=== PATIENT | male | born 1965 | race Caucasian/White ===

== ENCOUNTER 2016-09-01 10:05 | Emergency (ER) | payer OTHER ==
[~2016-09-01] VITALS: Ht 188 cm; Wt 95.9 kg
[2016-09-01 10:48] LABS: MCH 30.3 PG (29.0-34.0); MCHC 33.9 G/DL (30.0-36.0); MCV 89.3 FL (86-99); MEAN PLAT.VOLUME 11.1 uM^3 (9.0-12.4); PLATELET COUNT 230 K/uL (156-360); RBC DIS.WIDTH-CV 12.7 % (11.8-14.6); RBC DIS.WIDTH-SD 42.4 % (39-53); RED BLOOD COUNT 5.15 M/uL (4.00-5.50)
[2016-09-01 11:05] LABS: CHLORIDE 105 mEq/L (99-109); POTASSIUM 4.3 mEq/L (3.7-5.4); SODIUM 137 mEq/L (136-147)
[2016-09-01 11:07] LABS: GLUCOSE 113 mg/dL (70-99)
[2016-09-01 11:09] LABS: ANION GAP 9 MEQ/L (2-14); TOTAL BILIRUBIN 0.6 mg/dL (0.0-1.0)
[2016-09-01 11:11] LABS: ALKALINE PHOSPHATASE 74 IU/L (3-129)
[2016-09-01 11:12] LABS: GFR ESTIMATE (CALCULATED) > 59 mL/min/; UREA NITROGEN (BUN) 19 mg/dL (9-23)
[2016-09-01] MEDS ORDERED: SUBOXONE 12 MG1 EACH SL (12:18)
[2016-09-01 12:29] LABS: LIPASE 17 U/L (1.0-51.0)
[2016-09-01 12:35] LABS: ADD MIUA? NO; BILIRUBIN NEGATIVE; BLOOD NEGATIVE; COLOR YELLOW ((YELLOW)); GLUCOSE (STRIP) NEGATIVE; KETONES NEGATIVE; LEUKOCYTES NEGATIVE; NITRITE NEGATIVE; PROTEIN (STRIP) NEGATIVE; SPECIFIC GRAVITY 1.021 (1.000-1.030); UCUL ADDED? NO; UROBILINOGEN 0.2 MG/DL (0.2-1.0)
[2016-09-01] MEDS ORDERED: COLACE100 MG PO (13:45)
[2016-09-01 13:50] VITALS: BP 141/81
== END 2016-09-01 13:51 | disposition home or self-care (01) ==
LOC: EME 10:05
DX: K59.00 Constipation, unspecified (principal); R10.9 Unspecified abdominal pain; F17.200 Nicotine dependence, unspecified, uncomplicated
CPT/HCPCS: 74000; 80053; 81003; 83690; 85027; 99281; 99284

== ENCOUNTER 2016-09-11 11:51 | Emergency (ER) | payer OTHER ==
[~2016-09-11] VITALS: Ht 185.4 cm; Wt 94.6 kg
[~2016-09-11 11:51] MED LIST: COLACE100 MG PO; SUBOXONE 12 MG1 EACH SL
[2016-09-11 14:40] LABS: HEMATOCRIT 44.8 % (38.0-50.0); MCH 29.9 PG (29.0-34.0); MCHC 33.5 G/DL (30.0-36.0); MCV 89.4 FL (86-99); MEAN PLAT.VOLUME 10.6 uM^3 (9.0-12.4); PLATELET COUNT 257 K/uL (156-360); RBC DIS.WIDTH-CV 12.6 % (11.8-14.6); RBC DIS.WIDTH-SD 41.3 % (39-53); RED BLOOD COUNT 5.01 M/uL (4.00-5.50); WHITE BLOOD COUNT 8.7 K/uL (4.1-10.2)
[2016-09-11 15:01] LABS: CHLORIDE 106 mEq/L (99-109); POTASSIUM 4.7 mEq/L (3.7-5.4); SODIUM 136 mEq/L (136-147)
[2016-09-11 15:03] LABS: GLUCOSE 95 mg/dL (70-99)
[2016-09-11 15:04] LABS: ANION GAP 8 MEQ/L (2-14)
[2016-09-11 15:05] LABS: TOTAL BILIRUBIN 0.5 mg/dL (0.0-1.0)
[2016-09-11 15:06] LABS: ALKALINE PHOSPHATASE 74 IU/L (3-129)
[2016-09-11 15:07] LABS: GFR ESTIMATE (CALCULATED) > 59 mL/min/
[2016-09-11 15:08] LABS: UREA NITROGEN (BUN) 23 mg/dL (9-23)
[2016-09-11 15:24] LABS: ADD MIUA? YES; BILIRUBIN NEGATIVE; BLOOD NEGATIVE; GLUCOSE (STRIP) NEGATIVE; KETONES 5; LEUKOCYTES NEGATIVE; NITRITE NEGATIVE; PROTEIN (STRIP) 30; SPECIFIC GRAVITY 1.038 (1.000-1.030); UROBILINOGEN 0.2 MG/DL (0.2-1.0)
[2016-09-11 15:26] LABS: COLOR YELLOW ((YELLOW))
[2016-09-11 15:38] LABS: BACTERIA NONE SEEN /HPF; EPITHELIAL CELLS RARE /HPF; MUCUS 3+ /LPF; RED BLOOD CELLS 0-5 /HPF (0-5); UCUL ADDED? NO; WHITE BLOOD CELLS 0-5 /HPF (0-5)
[2016-09-11 16:07] VITALS: BP 131/80
== END 2016-09-11 16:08 | disposition home or self-care (01) ==
LOC: EME 11:51
PROVIDERS: Physician Assistant
DX: R10.31 Right lower quadrant pain (principal); K59.00 Constipation, unspecified; F17.200 Nicotine dependence, unspecified, uncomplicated
CPT/HCPCS: 74000; 74176; 80053; 81003; 85027; 99281; 99284